=== PATIENT | male | born 1985 | race Caucasian/White ===

== ENCOUNTER 2018-01-31 07:44 | Emergency (ER) | payer OTHER ==
[2018-01-31 08:15] LABS: ADD MAN DIFF? NO
[2018-01-31 08:18] LABS: BASO # 0.1 x10^3/uL (0.0-0.2); BASO % 1 % (0-3); EOS # 0.2 x10^3/uL (0.0-0.7); EOS % 3 % (0-3); HEMATOCRIT 44.3 % (39.0-53.0); HEMOGLOBIN 15.3 g/dL (13.0-17.5); LYMPH # 2.4 x10^3/uL (1.0-4.8); LYMPH % 32 % (24-48); MEAN CORPUSCULAR HEMOGLOBIN 32 pg (25-35); MEAN CORPUSCULAR HGB CONC 35 g/dL (31-37); MEAN CORPUSCULAR VOLUME 93 fL (79-100); MONO # 0.6 x10^3/uL (0.0-1.1); MONO % 9 % (0-9); NEUT % 55 % (31-73); PLATELET COUNT 273 x10^3/uL (140-400); RED BLOOD COUNT 4.76 x10^6/uL (4.30-5.70); RED CELL DISTRIBUTION WIDTH 13.1 % (11.5-14.5); WHITE BLOOD COUNT 7.3 x10^3/uL (4.0-11.0)
[2018-01-31] MEDS: IV NORMAL SALINE 1000ML BAG 1,000 ML IV ×2 (08:25→10:00)
[2018-01-31 08:37] LABS: ANION GAP 10 (6-14); BLOOD UREA NITROGEN 9 mg/dL (8-26); BUN/CREATININE RATIO 10 (6-20); CALCIUM 8.2 mg/dL (8.5-10.1); CARBON DIOXIDE 24 mmol/L (21-32); CHLORIDE 107 mmol/L (98-107); CREATININE 0.9 mg/dL (0.7-1.3); GFR 98.4; GLUCOSE 114 mg/dL (70-99); POTASSIUM 3.9 mmol/L (3.5-5.1); SODIUM 141 mmol/L (136-145)
[2018-01-31 08:41] LABS: ALBUMIN 3.7 g/dL (3.4-5.0); ALBUMIN/GLOBULIN RATIO 1.3 (1.0-1.7); ALK PHOS 75 U/L (46-116); ALT (SGPT) 51 U/L (16-63); AST (SGOT) 23 U/L (15-37); TOTAL BILIRUBIN 0.3 mg/dL (0.2-1.0); TOTAL PROTEIN 6.5 g/dL (6.4-8.2)
[2018-01-31 09:29] LABS: BILIRUBIN,URINE NEGATIVE (NEG); CLARITY,URINE CLEAR; COLOR,URINE YELLOW; GLUCOSE,URINE NEGATIVE (NEG); NITRITE,URINE NEGATIVE (NEG); PROTEIN,URINE NEGATIVE (NEG-TRACE); UROBILINOGEN,URINE 0.2 mg/dL (0.2 mg/dL)
[2018-01-31 09:39] LABS: BACTERIA,URINE FEW /HPF (0-FEW); RBC,URINE 0 /HPF (0-2); SQUAMOUS EPITHELIAL CELL,UR OCC /LPF
[2018-01-31] MEDS: ONDANSETRON PF 4 MG/2 ML VIAL. IV (10:00)
== END 2018-01-31 11:49 | disposition home or self-care (01) ==
LOC: ER 07:44
DX: E86.0 Dehydration (principal); K21.9 Gastro-esophageal reflux disease without esophagitis; F12.10 Cannabis abuse, uncomplicated
CPT/HCPCS: 36415; 80053; 81001; 85025; 87086; 96361; 96374; 99284-25; J2405; J7030

== ENCOUNTER 2018-02-13 06:55 | Emergency (ER) | payer OTHER ==
[2018-02-13] MEDS: IBUPROFEN 600 MG TABLET. PO (07:15)
[2018-02-13] MEDS: ACETAMINOPHEN/CODEINE 300/30MG TABLET. PO (07:45)
== END 2018-02-13 07:49 | disposition home or self-care (01) ==
LOC: ER 06:55
DX: S53.401A Unspecified sprain of right elbow, initial encounter (principal); F12.10 Cannabis abuse, uncomplicated; K21.9 Gastro-esophageal reflux disease without esophagitis; Z90.49 Acquired absence of other specified parts of digestive tract; F17.210 Nicotine dependence, cigarettes, uncomplicated; W18.30XA Fall on same level, unspecified, initial encounter; Y93.89 Activity, other specified; Y92.89 Other specified places as the place of occurrence of the external cause; Y99.8 Other external cause status
CPT/HCPCS: 73080; 99284

== ENCOUNTER 2020-04-14 06:10 | Emergency (ER) | payer SELFPAY ==
[~2020-04-14] VITALS: Ht 175.3 cm; Wt 81.8 kg
[~2020-04-14 06:10] MED LIST: FAMO20TA5 PO; ONDA4TAB10 SL
[2020-04-14 06:54] VITALS: BP 143/88
[2020-04-14] MEDS ORDERED: POLY10DR EACHEYE (07:06)
--- NOTE | 2020-04-14 07:07 | PHYS DOC ---
Past Medical History Past Medical History: No Pertinent History, GERD Additional Past Medical Histor: heartburn Past Surgical History: Cholecystectomy Smoking Status: Current Every Day Smoker Alcohol Use: Rarely Drug Use: Marijuana General Adult EDM: Chief Complaint: EYE PROBLEMS HPI: HPI: Patient is a 34 year old male who presents with a 1 week history of eye discharge was of discomfort and blurry vision. Patient states it started in his right eye and now is in both eyes. Patient denies any trauma or inciting events. Patient states his symptoms are worse at night and when he wakes up in the morning and gradually clear throughout the day. Patient has noted yellowish discharge and turned pink this morning. And matting in his eyes especially when he wakes up. Patient denies any URI or allergy symptoms. No fevers no cough no sore throat congestion. Patient does endorse some mild photophobia. Review of Systems: Review of Systems: Constitutional: Denies fever or chills. [] Eyes: Complains of mild blurry vision and ocular discharge HENT: Denies nasal congestion or sore throat. [] Respiratory: Denies cough or shortness of breath. [] Cardiovascular: Denies chest pain or edema. [] GI: Denies abdominal pain, nausea, vomiting, : Denies dysuria. [] Musculoskeletal: Denies back pain or joint pain. [] Integument: Denies rash. [] Neurologic: Denies headache, focal weakness or sensory changes. [] Endocrine: Denies polyuria or polydipsia. [] Lymphatic: Denies swollen glands. [] Psychiatric: Denies depression or anxiety. [] Heart Score: Risk Factors: Risk Factors: DM, Current or recent (<one month) smoker, HTN, HLP, family history of CAD, obesity. Risk Scores: Score 0 - 3: 2.5% MACE over next 6 weeks - Discharge Home Score 4 - 6: 20.3% MACE over next 6 weeks - Admit for Clinical Observation Score 7 - 10: 72.7% MACE over next 6 weeks - Early Invasive Strategies Allergies: Allergies: Allergies Coded Allergies Type Severity Reaction Last Updated Verified No Known Drug Allergies 01/01/16 No Physical Exam: PE: Constitutional: Well developed, well nourished, no acute distress, non-toxic appearance. HENT: No trismus, external ears normal Eyes: Bilateral conjunctiva mildly injected. Mild clear/yellow discharge from the eyes. Pupils are equal round and reactive to light. Extraocular motions are intact. Mild photophobia. Very mild periorbital edema Neck: Normal range of motion, no tenderness, supple, no stridor. Cardiovascular: Regular rate/rhythm, peripheral pulse intact, PSYCHOLOGICAL TESTS SALES AGENT intact Lungs & Thorax: No respiratory distress Abdomen: No distension Skin: Diffuse: Intact, no rash Back: Full ROM Extremities: Normal inspection, no edema Neurologic: Alert and oriented X 3, normal motor function, , no focal deficits noted. Psychologic: Affect normal, judgement normal, mood normal. Current Patient Data: Vital Signs: Vital Signs Date Time Temp Pulse Resp B/P (MAP) Pulse Ox O2 Delivery O2 Flow Rate FiO2 04/14/20 06:54 98.3 70 20 143/88 (106) 98 Room Air 98.3 Vital Signs Date Time Temp Pulse Resp B/P (MAP) Pulse Ox O2 Delivery O2 Flow Rate FiO2 04/14/20 06:54 98.3 70 20 143/88 (106) 98 Room Air 98.3 EKG: EKG: [] Radiology/Procedures: Radiology/Procedures: [] Course & Med Decision Making: Course & Med Decision Making Pertinent Labs and Imaging studies reviewed. (See chart for details) [] 34-year-old male presents with mild conjunctivitis. No history of trauma. Symptoms are bilateral. Doubt foreign body. Discussed with patient that we will place him on antibiotic drops but if symptoms are not any better nothing to follow-up with ophthalmology. Patient will be given referrals. Liliya Disclaimer: Liliya Disclaimer: This electronic medical record was generated, in whole or in part, using a voice recognition dictation system. Departure Departure Impression: Primary Impression: Bilateral conjunctivitis Disposition: 01 HOME, SELF-CARE Condition: STABLE Referrals: JERICA optluiz NO PCP (PCP) 2-3 days Patient Instructions: Conjunctivitis (Viral and Bacterial) Additional Instructions: EMERGENCY DEPARTMENT GENERAL DISCHARGE INSTRUCTIONS THANK YOU for coming to [facility] Emergency Department (ED) today and trusting us with your care. We trust that you had a positive experience in our Emergency Department. If you wish to speak to the department Management you can contact the trimming department blocker at . YOUR FOLLOW UP INSTRUCTIONS ARE FOLLOWS: Do you have a private doctor? If you do not have a private doctor, please ask for a resource list of physicians or clinics that may be able to assist you with follow up care. The Emergency Physician has interpreted your x-rays. The X-ray specialist will also review them. If there is a change in the findings you will be notified in 48 hours when at all possible. A lab test or lab culture may have been done, your results will be reviewed and you will be notified if you need a change in treatment. ADDITIONAL INSTRUCTIONS AND INFORMATION Your care today has been supervised by a physician who is specially trained in emergency care. Many problems require more than one evaluation for a complete diagnosis and treatment. We recommend that you schedule your follow up appointment as recommended to ensure complete treatment of your illness or injury. If you are unable to obtain follow up care and continue to have a problem, or if your condition worsens we recommend that you return to the ED. We are not able to safely determine your condition over the phone nor are we able to give sound medical advice over the phone. For these safety reasons, if you call for medical advice we will ask you to come to the ED for further evaluation If you have any questions regarding these discharge instructions please call the ED at . SAFETY INFORMATION In the interest of safety, wellness, and injury prevention; we encourage you to wear your seatbelt, if you smoke; quit smoking, and we encourage your family to use protective helmet for bicycling and other sporting events that present an increased risk for head injury. IF YOUR SYMPTOMS WORSEN OR NEW SYMPTOMS DEVELOP, OR YOU HAVE CONCERNS ABOUT YOUR CONDITION; OR IF YOUR CONDITION WORSENS WHILE YOU ARE WAITING FOR YOUR FOLLOW UP APPOINTMENT; EITHER CONTACT YOUR PRIMARY CARE DOCTOR, THE PHYSICIAN WHOSE NAME AND NUMBER YOU WERE GIVEN, OR RETURN TO THE ED IMMEDIATELY. Scripts Polymyxin B Sulf/Trimethoprim (POLYTRIM EYE DROPS) 10 Ml Drops 1 DROP EACHEYE Q6HRS, #10 ML Prov: ANKIT RODRIGUEZ MD 04/14/20 Justicifation of Admission Dx: Justifications for Admission: Justification of Admission Dx: N/A ANKIT RODRIGUEZ MD Apr 14, 2020 07:07
== END 2020-04-14 07:27 | disposition home or self-care (01) ==
LOC: ER 06:10
DX: H10.9 Unspecified conjunctivitis (principal); H53.8 Other visual disturbances; K21.9 Gastro-esophageal reflux disease without esophagitis; F17.200 Nicotine dependence, unspecified, uncomplicated; F12.90 Cannabis use, unspecified, uncomplicated; Z90.89 Acquired absence of other organs; Z90.49 Acquired absence of other specified parts of digestive tract
CPT/HCPCS: 99283